=== PATIENT | male | born 1965 | race Caucasian/White ===

== ENCOUNTER 2021-04-20 20:23 | Emergency (ER) | payer OTHER, BC ==
[2021-04-20] MEDS ORDERED: TETANUS, DIPHTHERIA TOX,ADULT (TDVAX) 0.5 ML VIAL IM ONE (20:32)
[2021-04-20] MEDS ORDERED: Morphine 4 MG/ML VIAL ONE (21:43)
[2021-04-20] MEDS ORDERED: Ondansetron PF 4 MG/2 ML Vial ONE (21:44)
== END 2021-04-20 22:17 | disposition home or self-care (01) ==
LOC: BURERS 20:23
DX: S42.021A Displaced fracture of shaft of right clavicle, initial encounter for closed fracture (principal); S40.811A Abrasion of right upper arm, initial encounter; V86.99XA Unspecified occupant of other special all-terrain or other off-road motor vehicle injured in nontraffic accident, initial encounter; I10 Essential (primary) hypertension; E78.5 Hyperlipidemia, unspecified
CPT/HCPCS: 70450; 71260; 72125; 74177; 90471; 90714; 96374; 96375; J2270; J2405